=== PATIENT | male | born 1940 | race Caucasian/White ===

== ENCOUNTER 2017-01-05 10:40 | Emergency (ER) | payer MEDICARE, BC ==
[~2017-01-05] VITALS: Ht 152.4 cm; Wt 60.0 kg
[2017-01-05 10:43] VITALS: BP 123/58; PULSE 112; RESP 13; TEMP 98.5; O2SAT 97
[2017-01-05] MEDS ORDERED: CIPR500T2 PO (11:02)
--- NOTE | 2017-01-05 11:53 | PD ---
HPI . Difficulty initiating urine stream Chief Complaint: Complaint Time Seen by Provider: 11:43 Travel History International Travel<30 days: No Contact w/Intl Traveler<30days: No Traveled to known affect area: No History of Present Illness HPI 76-year-old male presents to the emergency department for evaluation of difficulty initiating urine stream. Patient does not have any history of BPH or prostate cancer. Patient is currently being treated for UTI with Cipro 500 twice a day. Patient started this 2 days ago. Patient stated he was alarmed when he felt the urge to urinate and could not urinate, however this is he arrived to the emergency department he urinated a substantial amount. Patient states after starting the Cipro he no longer has dysuria or hematuria. Patient denies any fevers, chills, malaise, chest pain, shortness of breath, nausea, vomiting, diarrhea or lightheadedness. Patient states he feels embarrassed that he came to the emergency department for evaluation since the problem resolved as soon as he presented. Patient denies any other physiological symptoms. 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 PFSH Past Medical History Medical other: Yes (polio) Tetanus Vaccination: > 5 Years Past Surgical History Surgical History: No Previous Surgery Social History Alcohol Use: No Tobacco Use: No Substance Use: No Allergies-Medications (Allergen,Severity, Reaction): Coded Allergies: clarithromycin (Verified Allergy, Unknown, PALPITATIONS, 01/05/17) Reported Meds & Prescriptions Reported Meds & Active Scripts Active Reported Ciprofloxacin (Ciprofloxacin HCl) 500 Mg Tab 500 Mg PO BID Review of Systems Except as stated in HPI: all other systems reviewed are Neg Physical Exam Narrative GENERAL: Well-nourished well-developed 76-year-old male in no acute distress SKIN: Focused skin assessment warm/dry. HEAD: Atraumatic. Normocephalic. EYES: Pupils equal and round. No scleral icterus. No injection or drainage. ENT: No nasal bleeding or discharge. Mucous membranes pink and moist. NECK: Trachea midline. No JVD. CARDIOVASCULAR: Regular rate and rhythm. No murmur appreciated. RESPIRATORY: No accessory muscle use. Clear to auscultation. Breath sounds equal bilaterally. GASTROINTESTINAL: Abdomen soft, non-tender, nondistended. Hepatic and splenic margins not palpable. MUSCULOSKELETAL: Right lower extremity smaller than the left lower extremity related to history of polio. No obvious deformities. No clubbing. No cyanosis. No edema. NEUROLOGICAL: Awake and alert. No obvious cranial nerve deficits. Motor grossly within normal limits. Normal speech. PSYCHIATRIC: Appropriate mood and affect; insight and judgment normal. Data Data Last Documented VS Vital Signs Date Time Temp Pulse Resp B/P (MAP) Pulse Ox O2 Delivery O2 Flow Rate FiO2 01/05/17 10:43 98.5 112 13 123/58 (79) 97 MDM Medical Decision Making Medical Screen Exam Complete: Yes Emergency Medical Condition: Yes Medical Record Reviewed: Yes Differential Diagnosis Differential diagnoses include BPH, nephrolithiasis, UTI, urinary obstruction, anxiety Narrative Course 76-year-old male patient presents emergency department for evaluation of difficulty initiating a stream of urine. Patient is currently being treated for urinary tract infection with Cipro 500 mg twice a day. Patient started his antibiotic 2 days ago. Patient states that he started his antibiotic he has not had any dysuria or hematuria. Patient is afebrile, denies any chest pain, shortness breath, chills, lightheadedness, malaise. Patient states he is embarrassed since he came for a problem that resolved as soon as he arrived. Patient denies any other physiological complaints. Patient will be discharged home with instructions to stay hydrated by drinking enough water and follow up with primary care. Diagnosis Primary Impression: Urinary hesitancy Referrals: Primary Care Physician Patient Instructions: General Instructions, Urinary Tract Infection in Men (ED) Additional Instructions: Please return to emergency department if your symptoms return or worsen. Follow up with your primary care provider. Take medications as prescribed. Med/Other Pt SpecificInfo: No Change to Meds Disposition: 01 DISCHARGE HOME Condition: Stable LuxMichelle barbosa Radha BLACK Jan 05, 2017 11:53
== END 2017-01-05 12:15 | disposition home or self-care (01) ==
LOC: NEPC 10:40
DX: R39.11 Hesitancy of micturition (principal); Z86.12 Personal history of poliomyelitis; Z88.8 Allergy status to other drugs, medicaments and biological substances
CPT/HCPCS: 99281

== ENCOUNTER → 2017-02-09 | Outpatient (CLI) | payer MEDICARE, BC ==
[~2017-02-09] MED LIST: CENTCHW4 CHEW; CIPR250T52 PO; CIPR500T2 PO; MELO15TA20 PO
[2017-02-09 12:55] LABS: AUTOMATED NEUTROPHIL # 8.5 TH/MM3 (1.8-7.7); BASOPHIL # 0.1 TH/MM3 (0-0.2); BASOPHIL % 0.7 % (0.0-2.0); EOSINOPHIL # 0.2 TH/MM3 (0-0.4); EOSINOPHIL % 1.7 % (0.0-4.0); HEMATOCRIT 45.1 % (39.0-51.0); HEMO FLAGS DIFF FINAL; LYMPH % 21.6 % (9.0-44.0); LYMPHOCYTE # 2.6 TH/MM3 (1.0-4.8); MEAN CELL VOLUME 90.9 FL (80.0-100.0); MEAN CORPUSCULAR HEMOGLOBIN 29.9 PG (27.0-34.0); MEAN CORPUSCULAR HGB CONC 32.9 % (32.0-36.0); MONO % 5.7 % (0.0-8.0); NEUT % 70.3 % (16.0-70.0); PLATELET COUNT 255 TH/MM3 (150-450); RED BLOOD COUNT 4.96 MIL/MM3 (4.50-5.90); WHITE BLOOD COUNT 12.2 TH/MM3 (4.0-11.0)
[2017-02-09 13:11] LABS: APTT (PATIENT) 29.7 SEC (24.3-30.1); PROTHROMBIN TIME - PATIENT 10.7 SEC (9.8-11.6)
[2017-02-09 13:27] LABS: ALT (GPT) 22 U/L (12-78); ANION GAP 14 MEQ/L (5-15); AST (GOT) 18 U/L (15-37); BICARBONATE 19.7 MEQ/L (21.0-32.0); BLOOD UREA NITROGEN 31 MG/DL (7-18); CHLORIDE 103 MEQ/L (98-107); GLOMERULAR FILTRATION RATE 36 ML/MIN (>89); GLUCOSE,FASTING 68 MG/DL (74-99); POTASSIUM 4.7 MEQ/L (3.5-5.1); SODIUM (NA) 137 MEQ/L (136-145)
[2017-02-09 13:29] LABS: ALKALINE PHOSPHATASE 79 U/L (45-117)
--- NOTE | 2017-02-09 13:40 | RADRPT ---
EXAM DATE/TIME: 02/09/2017 13:07 [facility] COMPARISON: No previous studies available for comparison. INDICATIONS : Evaluate for pneumonia, pneumothorax, or communicable disease. Colon resection surgery. MEDICAL HISTORY : None. SURGICAL HISTORY : None. ENCOUNTER: Initial ACUITY: 1 day PAIN SCORE: 0/10 LOCATION: Bilateral chest FINDINGS: PA and lateral views of the chest demonstrate the lungs to be symmetrically aerated without evidence of mass, infiltrate or effusion. The cardiomediastinal contours are unremarkable. Osseous structure s are intact. CONCLUSION: No acute disease. Tal Jin MD FACR on February 09, 2017 at 13:37 Board Certified Radiologist. This report was verified electronically.
[2017-02-09 13:49] LABS: BACTERIA, URINE OCC /hpf; BLOOD, URINE NEG (NEG); COMMENT (UR) CULTURE INDICATED; CULTURE IF INDICATED CULTURE INDICATED; GLUCOSE,URINE NEG (NEG); HYALINE CAST, URINE 1 /lpf (RARE); KETONE, URINE 40 mg/dL (NEG); MUCUS URINE FEW /lpf (OCC); NITRITE,URINE NEG (NEG); URINE COLOR YELLOW (YELLW/STRAW)
--- NOTE | 2017-02-12 11:35 | EKG ---
Date Performed: 02/09/2017 Time Performed: 12:30:00 PTAGE: 76 years EKG: SINUS TACHYCARDIA POSSIBLE INFERIOR MYOCARDIAL INFARCTION, PROBABLY OLD ABNORMAL ECG NO PREVIOUS TRACING DOCTOR: Omid Mora Interpretating Date/Time 02/12/2017 11:34:14
== END ==
LOC: CPRE 11:48
PROVIDERS: ATTEND Colon & Rectal Surgery
DX: Z01.810 Encounter for preprocedural cardiovascular examination (principal); Z01.811 Encounter for preprocedural respiratory examination; Z01.812 Encounter for preprocedural laboratory examination; Z79.01 Long term (current) use of anticoagulants; K57.30 Diverticulosis of large intestine without perforation or abscess without bleeding; N32.1 Vesicointestinal fistula; R82.99 Other abnormal findings in urine; R94.31 Abnormal electrocardiogram [ECG] [EKG]
CPT/HCPCS: 36415; 71020; 80053; 81001; 85025; 85610; 85730; 87086; 93005

== ENCOUNTER 2017-02-15 11:30 | Inpatient (IN) | payer MEDICARE, BC ==
[~2017-02-15] VITALS: Ht 152.4 cm; Wt 60.8 kg
[~2017-02-15 11:30] MED LIST changes: -CIPR500T2 PO
[2017-02-15] MEDS ORDERED: ROCURONIUM INJ 50 MG/5 ML SYRINGE IV PUSH ONE (12:00)
[2017-02-15] MEDS ORDERED: ALVIMOPAN 12 MG CAPSULE - On Call PO SCH (12:00)
[2017-02-15] MEDS ORDERED: ceFAZolin 1,000 MG/NS 100 ML IV SCH ×2 (12:00)
[2017-02-15] MEDS ORDERED: PHENYLEPH/NS 1000 MCG/10 ML SYR IV ONE (12:00)
[2017-02-15] MEDS ORDERED: SODIUM CHLORID 0.9% 500 ML IV PRN (12:00)
[2017-02-15] MEDS ORDERED: METOPROLOL TARTRATE 25 MG TAB PO PRN (12:00)
[2017-02-15] MEDS ORDERED: LACTATED RINGER'S 1000 ML IV PRN (12:00)
[2017-02-15] MEDS ORDERED: PROPOFOL 200 MG/20 ML AMP IV ONE (12:00)
[2017-02-15] MEDS ORDERED: DEXAMETHASONE SOD PHOS 4 MG/ML VIAL IV ONE (12:00)
[2017-02-15] MEDS ORDERED: CHLORHEXIDINE GLUCONATE 2 % 1 PACK (2 CLOTHS) TOPICAL PRN (12:00)
[2017-02-15] MEDS ORDERED: LIDOCAINE HCL 1% PF 5 ML AMPULE OTHER ONE (12:00)
[2017-02-15] MEDS ORDERED: ONDANSETRON HCL 4 MG/2 ML VIAL IV PUSH ONE (12:00)
[2017-02-15] MEDS ORDERED: POVIDONE IODINE 5% (ANTISEPSIS KIT) 4 APPLICATIONS EACH NARE PRN (12:00)
[2017-02-15] MEDS ORDERED: METRONIDAZOLE 500 MG/100 ML ISONTONIC SOLN IV SCH (12:00)
[2017-02-15] MEDS ORDERED: LACTATED RINGER'S 1000 ML INJ 1,000 ML IV ONE (12:00)
[2017-02-15] MEDS ORDERED: NORMOSOL R INJ 2,000 ML IV ONE (12:00)
[2017-02-15] MEDS ORDERED: ESMOLOL HCL 100 MG/10 ML VIAL IV ONE (12:00)
[2017-02-15] MEDS ORDERED: INSULIN HUMAN REGULAR 1,000 UNITS/10 ML VIAL SQ PRN (12:00)
[2017-02-15] MEDS ORDERED: HYDROmorphone HCL PF 2 MG/ML VIAL ONE (12:29)
[2017-02-15] MEDS ORDERED: ACETAMINOPHEN 1000 MG/100 ML 100 ML IV ONE (12:29)
[2017-02-15] MEDS ORDERED: DEXT 5%-NACL 0.9% 1000 ML INJ 1,000 ML IV SCH (12:30)
[2017-02-15] MEDS ORDERED: SUGAMMADEX SODIUM 200 MG/2 ML VIAL IV PUSH ONE ×2 (15:02)
[2017-02-15] MEDS ORDERED: MORPHINE SULFATE 30 MG/30 ML PCA IV SCH (15:45)
[2017-02-15] MEDS ORDERED: NALOXONE HCL 0.4 MG/ML AMP IV PUSH PRN (15:45)
[2017-02-15] MEDS ORDERED: SODIUM CHLORIDE 0.9% FLUSH 10 ML FLUSH IV FLUSH PRN (15:45)
[2017-02-15] MEDS ORDERED: POTASSIUM CHLOR 40 MEQ PREMIX 100 ML IV PRN (15:45)
[2017-02-15] MEDS ORDERED: ACETAMINOPHEN/HYDROcodone 325 MG/5 MG TAB PO PRN ×2 (15:45)
[2017-02-15] MEDS ORDERED: ZOLPIDEM TARTRATE 5 MG TAB PO PRN (15:45)
[2017-02-15] MEDS ORDERED: ONDANSETRON HCL 4 MG/2 ML VIAL IV PUSH PRN (15:45)
[2017-02-15] MEDS ORDERED: Post-op Orders (for Pharmacy) MISC XX ONE (15:45)
[2017-02-15] MEDS ORDERED: ENALAPRILAT 1.25 MG/ML VIAL IV PUSH PRN (15:45)
[2017-02-15] MEDS ORDERED: BENZOCAINE 6 MG/MENTHOL 10 MG LOZENGE BUCCAL PRN (15:45)
[2017-02-15] MEDS ORDERED: POTASSIUM CHLOR 20 MEQ PREMIX 100 ML IV PRN (15:45)
[2017-02-15] MEDS ORDERED: DO NOT ADM ANY ANTICOAGULANT DRUGS PRN (16:15)
[2017-02-15] MEDS ORDERED: *morphine SULFATE 8 MG/ML PERIprocedure ONLY ONE ×3 (16:20→17:25)
[2017-02-15] MEDS ORDERED: MORPHINE SULFATE 30 MG/30 ML PCA ONE (16:41)
--- NOTE | 2017-02-15 16:58 | PD.OP ---
Operative Report Date of Surgery: Feb 15, 2017 Preoperative Diagnosis: Diverticulitis with abscess Postoperative Diagnosis: Same Procedure: Cystoscopy with bilateral ureteral catheter placement Anesthesia: ROMANA Surgeon: Eduardo Lmyan Rail Car Unloader(s): None Resident Surgeon: None Operation and Findings: 75 year-old male with history of diverticulitis and diverticular abscess. Patient to undergo colon resection with evacuation of abscess by Dr. Bryson and Dr. Cai. Request for made for bilateral ureteral catheter placement. Patient was brought to the operating room and placed in dorsal lithotomy position, he was prepped and draped in usual sterile fashion, received preprocedure antibiotics, and general endotracheal tube anesthesia was administered. 22 German cystoscope was inserted the bladder and coapting prostatic lobes were identified. There is also a median lobe identified. The right ureteral orifice was identified for Scooter a catheter was inserted into the right ureteral orifice without difficulty. This was repeated on the left side with a 5 German open catheter without difficulty. The [place] was placed and the catheters were secured. The patient tolerated the procedure well. Eduardo Lyman DO Feb 15, 2017 16:58
[2017-02-15] MEDS: METOCLOPRAMIDE HCL 10 MG/2 ML VIAL IVS SCH ×2 (17:21→23:22)
[2017-02-15 17:22] LABS: BICARBONATE 14.9 MEQ/L (21.0-32.0); POTASSIUM 4.4 MEQ/L (3.5-5.1)
[2017-02-15] MEDS: D5-LR + KCL 20 MEQ INJ 1,000 ML IV SCH ×2 (17:24→22:58)
[2017-02-15 18:26] LABS: BASOPHIL % 0.2 % (0.0-2.0); HEMATOCRIT 37.5 % (39.0-51.0); HEMO FLAGS DIFF FINAL; LYMPH % 7.4 % (9.0-44.0); MEAN CELL VOLUME 90.6 FL (80.0-100.0); MEAN CORPUSCULAR HEMOGLOBIN 30.5 PG (27.0-34.0); MEAN CORPUSCULAR HGB CONC 33.7 % (32.0-36.0); MONO % 6.1 % (0.0-8.0); NEUT % 86.3 % (16.0-70.0); PLATELET COUNT 165 TH/MM3 (150-450); RED BLOOD COUNT 4.14 MIL/MM3 (4.50-5.90); RED CELL DISTRIBUTION WIDTH 13.6 % (11.6-17.2)
[2017-02-15] MEDS ORDERED: *HYDROmorphone PF 1 MG VIAL PERIprocedural Use ONLY ONE (18:52)
[2017-02-15 19:00] VITALS: BP 118/59; PULSE 108; RESP 14; TEMP 97.6; O2SAT 98
[2017-02-15 21:00] VITALS: PULSE 114
[2017-02-15] MEDS: metroNIDAZOLE 500 MG INJ 100 ML IV SCH (21:32)
[2017-02-15] MEDS: ceFAZolin 2 GM PREMIX 50 ML IV SCH (21:32)
[2017-02-15] MEDS: FUROSEMIDE 20 MG/2 ML VIAL IV PUSH SCH (21:33)
[2017-02-15] MEDS: SODIUM CHLORIDE 0.9% FLUSH 10 ML FLUSH IV FLUSH SCH (21:33)
[2017-02-15] MEDS: PCA - TOTAL MG MORPHINE DELIVERED PER SHIFT SCH (21:34)
[2017-02-15 22:00] VITALS: PULSE 112; RESP 14
[2017-02-15 23:00] VITALS: BP 103/63; PULSE 115; PULSE 116; RESP 12; TEMP 97.5; O2SAT 98
[2017-02-16] VITALS (14 sets, daily range): BP systolic 91–146; BP diastolic 52–77; PULSE 70–120; RESP 14–18; TEMP 95.5–98; O2SAT 96–98
[2017-02-16] MEDS: D5-LR + KCL 20 MEQ INJ 1,000 ML IV SCH ×2 (02:14→09:17)
[2017-02-16 04:35] LABS: AUTOMATED NEUTROPHIL # 11.6 TH/MM3 (1.8-7.7); BASOPHIL % 0.1 % (0.0-2.0); HEMATOCRIT 37.1 % (39.0-51.0); HEMO FLAGS DIFF FINAL; LYMPH % 4.9 % (9.0-44.0); LYMPHOCYTE # 0.7 TH/MM3 (1.0-4.8); MEAN CELL VOLUME 89.4 FL (80.0-100.0); MEAN CORPUSCULAR HEMOGLOBIN 30.1 PG (27.0-34.0); MEAN CORPUSCULAR HGB CONC 33.7 % (32.0-36.0); MONO % 9.8 % (0.0-8.0); NEUT % 85.2 % (16.0-70.0); PLATELET COUNT 204 TH/MM3 (150-450); RED BLOOD COUNT 4.15 MIL/MM3 (4.50-5.90); RED CELL DISTRIBUTION WIDTH 13.7 % (11.6-17.2); WHITE BLOOD COUNT 13.6 TH/MM3 (4.0-11.0)
[2017-02-16] MEDS: ceFAZolin 2 GM PREMIX 50 ML IV SCH ×2 (04:57→13:59)
[2017-02-16 05:08] LABS: BICARBONATE 22.7 MEQ/L (21.0-32.0); POTASSIUM 4.7 MEQ/L (3.5-5.1)
[2017-02-16] MEDS: PCA - TOTAL MG MORPHINE DELIVERED PER SHIFT SCH ×3 (06:00→20:40)
[2017-02-16] MEDS: metroNIDAZOLE 500 MG INJ 100 ML IV SCH ×2 (06:12→14:00)
[2017-02-16] MEDS: METOCLOPRAMIDE HCL 10 MG/2 ML VIAL IVS SCH ×4 (06:12→22:47)
[2017-02-16] MEDS: MELOXICAM 15 MG TAB PO SCH (08:16)
[2017-02-16] MEDS: PANTOPRAZOLE SODIUM 40 MG VIAL IVP SCH (08:16)
[2017-02-16] MEDS: ALVIMOPAN 12 MG CAPSULE - Post-op dosing PO SCH ×2 (08:16→20:40)
[2017-02-16] MEDS: SODIUM CHLORIDE 0.9% FLUSH 10 ML FLUSH IV FLUSH SCH ×2 (08:19→20:40)
[2017-02-16] MEDS: FUROSEMIDE 20 MG/2 ML VIAL IV PUSH SCH ×2 (08:19→20:40)
--- NOTE | 2017-02-16 08:52 | MP ---
cc: CONCETTA NEELY MD, MARTIN K. MD TOLLAND,NIKHIL Woodruff M.D. DATE OF SURGERY: 02/15/2017 PREOPERATIVE DIAGNOSIS Diverticulitis with colovesical fistula. POSTOPERATIVE DIAGNOSIS Diverticulitis with colovesical fistula. PROCEDURE Sigmoid colectomy, low anterior resection. ANESTHESIA General endotracheal. SURGEON Dr. Weinberg. DIRECTOR EXPORT SURGEON Dr. Ann. ESTIMATED BLOOD LOSS 50 cc. OPERATING TIME One hour and 25 minutes. OPERATIVE FINDINGS This patient had a longstanding, 1-1/2 years, colovesical fistula. It has worsened recently and for this reason he wished repair. A sigmoid resection was recommended. Exploration of the abdominal cavity revealed that the liver was palpably normal as was the gallbladder, the remainder of the colon and the small bowel. There was a segment of diverticulitis with a colovesical fistula to the dome of the bladder. The hole was probably a centimeter in diameter and the dome of the bladder was closed. A sigmoid resection was done with mobilization of the splenic flexure and a colorectal anastomosis was done in the upper third of the rectum. OPERATIVE TECHNIQUE The patient was placed on the table in supine position. After adequate general endotracheal anesthesia, the legs were placed in a perineal lithotomy position. The abdomen and perineum were prepped and draped in the usual manner. A transverse infraumbilical skin incision was made and carried down through subcutaneous tissue and rectus muscles, and the peritoneal cavity is entered with the above-mentioned findings. Dr. Teofilo Nicholson placed bilateral ureteral catheters for facilitation of identification of the ureters. The sigmoid colon was densely stuck to the dome of the bladder and this was dissected free and the fistula was easily seen. The fistula in the dome of the bladder was very visible with mucosa and therefore the mucosa was closed with interrupted 3-0 Vicryl suture and then seromuscular layer of the bladder was closed with interrupted 3-0 Vicryl sutures. The opening in the sigmoid colon was also approximated with 3-0 Vicryl sutures so that stool did not leak. Next, our attention was turned to the sigmoid colon and the descending colon and it was mobilized along its peritoneal reflection. The splenic flexure was mobilized and the omentum was mobilized from the transverse colon entering the lesser sac. The superior hemorrhoidal vessels were doubly clamped, cut and doubly ligated with 0 Vicryl ligatures and the inferior mesenteric vein was also clamped, cut and ligated. The retrorectal space was entered with electrocautery and the lateral pelvic peritoneum was incised bilaterally, and the rectal dissection was taken down to the pelvic floor with electrocautery. The anterior peritoneum over the cul-de-sac was incised but the cul-de-sac was not developed. The rectum below the sigmoid colon section where there was diverticulosis was cleared of its mesorectum with electrocautery and then the rectum was divided after placing a pursestring stapling device. Next, our attention was turned to the sigmoid portion of the colon, and there was adequate length with the full mobilization of the splenic flexure as mentioned. The descending branch of the left colic vessel was not divided. Marginal vessels were left intact and the upper sigmoid colon was cleared of its mesentery and then the pursestring stapling device was placed and the anvil of the 29 EEA was placed in the proximal bowel and the pursestring was tied. Dr. Ann went below and placed the EEA instrument transanally and the distal pursestring was tied. The instrument was then connected, closed and fired, creating a circular anastomosis. Dr. Ann then did proctosigmoidoscopy examination, insufflating air into the rectum and sigmoid colon with saline solution in the pelvis. No air leaks were identified. The pelvis was irrigated with two liters of saline solution and aspirated dry. A flat 10 Reji drain was placed posterior to the retrorectal dissection to the pelvic floor and brought out through a separate stab wound in the right lower quadrant. The previously mobilized omentum was brought down the left colic gutter and placed between the bladder and the colorectal anastomosis. The small bowel was replaced in the abdominal cavity in an bad work gatherer manner and the abdominal cavity was then closed in layers using a double-stranded #1 PDS for the posterior rectus sheath. The muscle layer was irrigated with saline solution and then the anterior rectus sheath was closed with double-stranded #1 PDS as well. The subcutaneous tissue was irrigated thoroughly with saline solution and aspirated dry, and the skin was closed with running 3-0 Vicryl subcuticular suture. Sponge, needle and instrument counts were reported as correct. The estimated blood loss was 50 cc. Operating time was 125 minutes. The patient tolerated the procedure well and left the operating room in good condition. MD BECCA Stanley /3:37 PM /8:36 AM
[2017-02-16] MEDS ORDERED: GLUCAGON 1 MG/ML VIAL OTHER PRN (15:00)
[2017-02-16] MEDS ORDERED: DEXTROSE 50% IN WATER 50 ML VIAL(D50) IV PUSH PRN (15:00)
[2017-02-16] MEDS: POTASSIUM CHLORIDE INJ 20 MEQ in LACTATED RINGER'S 1000 ML INJ 1,000 ML IV SCH (15:41)
[2017-02-16] MEDS: LOW DOSE INSULIN NOVOLOG SUPPLEMENTAL SCALE SQ SCH ×2 (17:00→21:00)
--- NOTE | 2017-02-16 18:13 | HHI.PR ---
Subjective Remarks Denies pain. No N or V. No BMs. Tolerating CLD Objective Vital Signs Date Time Temp Pulse Resp B/P (MAP) Pulse Ox O2 Delivery O2 Flow Rate FiO2 02/16/17 16:00 95.5 106 16 91/54 (66) 96 02/16/17 13:58 16 02/16/17 11:20 97.7 95 16 99/55 (70) 97 02/16/17 11:00 88 02/16/17 08:04 98.0 93 16 97/52 (67) 97 02/16/17 07:00 101 02/16/17 06:00 14 02/16/17 06:00 109 02/16/17 06:00 14 02/16/17 05:00 107 02/16/17 04:00 106 02/16/17 03:00 104 02/16/17 03:00 97.8 120 14 146/77 (100) 98 02/16/17 02:00 106 02/16/17 01:00 96 02/16/17 00:00 104 02/15/17 23:00 97.5 115 12 103/63 (76) 98 02/15/17 23:00 116 02/15/17 22:00 14 02/15/17 22:00 112 02/15/17 21:34 14 02/15/17 21:00 114 02/15/17 19:00 97.6 108 14 118/59 (78) 98 02/15/17 19:00 104 16 103/55 (71) 98 Room Air 02/15/17 18:30 108 16 123/63 (83) 99 Room Air I/O 02/15/17 02/15/17 02/15/17 02/16/17 02/16/17 02/16/17 07:00 15:00 23:00 07:00 15:00 23:00 Intake Total 3264.3 ml 2591 ml 850 ml 200 ml Output Total 750 ml 2600 ml 1420 ml Balance 2514.3 ml -9 ml -570 ml 200 ml Intake Oral 400 ml IV Total 264.3 ml 2591 ml 450 ml 200 ml Other 3000 ml Output Urine Total 400 ml 2525 ml 1400 ml Drainage Total 150 ml 75 ml 20 ml Estimated Blood Loss 200 ml Result Diagram: 02/16/17 0423 02/16/17 0423 Objective Remarks VS-S Abd: flat,soft. I&Os and Labs OK Assessment and Plan Assessment and Plan Stable. POD#1 CLD. Decrease IVs Jonathon Weinberg MD Feb 16, 2017 18:13
[2017-02-16] MEDS ORDERED: ALVIMOPAN 12 MG CAPSULE PO SCH (21:00)
[2017-02-17 00:19] VITALS: BP 105/55; PULSE 72; RESP 18; TEMP 98.1; O2SAT 98
[2017-02-17] MEDS: POTASSIUM CHLORIDE INJ 20 MEQ in LACTATED RINGER'S 1000 ML INJ 1,000 ML IV SCH ×2 (01:44→11:55)
[2017-02-17] MEDS: PCA - TOTAL MG MORPHINE DELIVERED PER SHIFT SCH (04:14)
[2017-02-17] MEDS: METOCLOPRAMIDE HCL 10 MG/2 ML VIAL IVS SCH ×4 (04:14→22:46)
[2017-02-17 06:02] LABS: BICARBONATE 20.7 MEQ/L (21.0-32.0); POTASSIUM 4.2 MEQ/L (3.5-5.1)
[2017-02-17 06:19] LABS: AUTOMATED NEUTROPHIL # 9.5 TH/MM3 (1.8-7.7); BASOPHIL # 0.1 TH/MM3 (0-0.2); BASOPHIL % 0.4 % (0.0-2.0); EOSINOPHIL # 0.1 TH/MM3 (0-0.4); EOSINOPHIL % 0.8 % (0.0-4.0); HEMATOCRIT 35.6 % (39.0-51.0); HEMO FLAGS DIFF FINAL; LYMPH % 16.8 % (9.0-44.0); LYMPHOCYTE # 2.2 TH/MM3 (1.0-4.8); MEAN CELL VOLUME 88.6 FL (80.0-100.0); MEAN CORPUSCULAR HEMOGLOBIN 30.7 PG (27.0-34.0); MEAN CORPUSCULAR HGB CONC 34.6 % (32.0-36.0); MONO % 10.8 % (0.0-8.0); NEUT % 71.2 % (16.0-70.0); PLATELET COUNT 154 TH/MM3 (150-450); RED BLOOD COUNT 4.02 MIL/MM3 (4.50-5.90); RED CELL DISTRIBUTION WIDTH 13.7 % (11.6-17.2); WHITE BLOOD COUNT 13.3 TH/MM3 (4.0-11.0)
[2017-02-17 08:00] VITALS: BP 114/53; PULSE 111; RESP 16; TEMP 95.1; O2SAT 98
--- NOTE | 2017-02-17 08:46 | HHI.PR ---
Subjective Remarks Denies pain. No N or V. No BMs. Tolerating FLD Objective Vital Signs Date Time Temp Pulse Resp B/P (MAP) Pulse Ox O2 Delivery O2 Flow Rate FiO2 02/17/17 08:00 95.1 111 16 114/53 (73) 98 02/17/17 04:14 18 02/17/17 00:19 98.1 72 18 105/55 (72) 98 02/16/17 22:49 18 02/16/17 20:40 18 02/16/17 20:30 97.0 70 18 99/58 (72) 97 02/16/17 16:00 95.5 106 16 91/54 (66) 96 02/16/17 13:58 16 02/16/17 11:20 97.7 95 16 99/55 (70) 97 02/16/17 11:00 88 I/O 02/16/17 02/16/17 02/16/17 02/17/17 02/17/17 02/17/17 07:00 15:00 23:00 07:00 15:00 23:00 Intake Total 2591 ml 850 ml 200 ml 1730 ml Output Total 2600 ml 1420 ml 25 ml 2010 ml Balance -9 ml -570 ml 175 ml -280 ml Intake Oral 400 ml 780 ml IV Total 2591 ml 450 ml 200 ml 950 ml Output Urine Total 2525 ml 1400 ml 2000 ml Drainage Total 75 ml 20 ml 25 ml 10 ml Result Diagram: 02/17/178 02/17/17447 Objective Remarks VS-S Abd: flat,soft.Wound clean I&Os and Labs: OK Assessment and Plan Assessment and Plan Stable. POD#2 FLD. Decrease IVs. Jonathon Weinberg MD Feb 17, 2017 08:46
[2017-02-17] MEDS ORDERED: PSEUDOEPHEDRINE HCL 30 MG TAB PO PRN (09:00)
[2017-02-17] MEDS: LOW DOSE INSULIN NOVOLOG SUPPLEMENTAL SCALE SQ SCH ×4 (09:38→20:42)
[2017-02-17] MEDS: PANTOPRAZOLE SODIUM 40 MG VIAL IVP SCH (09:40)
[2017-02-17] MEDS: FUROSEMIDE 20 MG/2 ML VIAL IV PUSH SCH ×2 (09:40→20:36)
[2017-02-17] MEDS: ALVIMOPAN 12 MG CAPSULE - Post-op dosing PO SCH ×2 (09:40→20:35)
[2017-02-17] MEDS: MELOXICAM 15 MG TAB PO SCH (09:40)
[2017-02-17] MEDS: SODIUM CHLORIDE 0.9% FLUSH 10 ML FLUSH IV FLUSH SCH ×2 (09:41→20:35)
[2017-02-17 12:00] VITALS: BP 99/55; PULSE 112; RESP 18; TEMP 97.7; O2SAT 98
[2017-02-17 16:00] VITALS: BP 107/59; PULSE 122; RESP 16; TEMP 97.6; O2SAT 97
[2017-02-17 20:00] VITALS: BP 100/55; PULSE 127; RESP 22; TEMP 96.4; O2SAT 96
[2017-02-18] VITALS: BP 134/61; PULSE 90; RESP 20; TEMP 98.2; O2SAT 97
[2017-02-18] MEDS: POTASSIUM CHLORIDE INJ 20 MEQ in LACTATED RINGER'S 1000 ML INJ 1,000 ML IV SCH (05:22)
[2017-02-18] MEDS: METOCLOPRAMIDE HCL 10 MG/2 ML VIAL IVS SCH ×2 (05:22→12:15)
[2017-02-18 05:37] LABS: BICARBONATE 27.2 MEQ/L (21.0-32.0); POTASSIUM 3.8 MEQ/L (3.5-5.1)
[2017-02-18] MEDS: LOW DOSE INSULIN NOVOLOG SUPPLEMENTAL SCALE SQ SCH ×2 (05:59→12:15)
[2017-02-18 08:00] VITALS: BP 117/66; PULSE 120; RESP 17; TEMP 96.2; O2SAT 97
[2017-02-18] MEDS: FUROSEMIDE 20 MG/2 ML VIAL IV PUSH SCH (09:48)
[2017-02-18] MEDS: ALVIMOPAN 12 MG CAPSULE - Post-op dosing PO SCH (09:48)
[2017-02-18] MEDS: PANTOPRAZOLE SODIUM 40 MG VIAL IVP SCH (09:48)
[2017-02-18] MEDS: MELOXICAM 15 MG TAB PO SCH (09:48)
[2017-02-18] MEDS: SODIUM CHLORIDE 0.9% FLUSH 10 ML FLUSH IV FLUSH SCH (09:49)
[2017-02-18 12:00] VITALS: BP 121/62; PULSE 129; RESP 17; TEMP 96.5; O2SAT 98
--- NOTE | 2017-02-18 12:49 | HHI.DCPOC ---
Discharge Care Plan Diagnosis: (1) Diverticulitis large intestine (2) Colovesical fistula (3) Sigmoid colon resection Your Health Problems Are: Difficulty with ADL Incision/Drains Appetite Changes Irregular Bowel Function Exercise Tolerance Goals to Promote Your Health * To prevent worsening of your condition and complications * To maintain your health at the optimal level Directions to Meet Your Goals Take your medications as prescribed Follow your dietary instruction Follow activity as directed Keep your appointments as scheduled Take your immunizations and boosters as scheduled If your symptoms worsen call your PCP, if no PCP go to Urgent Care Center or Emergency Room Smoking is Dangerous to Your Health. Avoid second hand smoke Call the 24-hour hour crisis hotline for domestic abuse at Joanthon Weinberg MD Feb 18, 2017 12:49
== END 2017-02-18 14:23 | disposition home or self-care (01) | DRG 654 ==
LOC: HSDI 11:30 → HCPC 19:30 → N07B 02-16 13:04
PROVIDERS: ADMIT Colon & Rectal Surgery; ATTEND Colon & Rectal Surgery
PROC: 0DBP0ZZ Excision of Rectum, Open Approach (ICD-10-PCS; 2017-02-15)
PROC: 0DJD8ZZ Inspection of Lower Intestinal Tract, Via Natural or Artificial Opening Endoscopic (ICD-10-PCS; 2017-02-15)
PROC: 0T9780Z Drainage of Left Ureter with Drainage Device, Via Natural or Artificial Opening Endoscopic (ICD-10-PCS; 2017-02-15)
PROC: 0T9680Z Drainage of Right Ureter with Drainage Device, Via Natural or Artificial Opening Endoscopic (ICD-10-PCS; 2017-02-15)
PROC: 0TQB0ZZ Repair Bladder, Open Approach (ICD-10-PCS; principal; 2017-02-15 13:26)
PROC: 0DTN0ZZ Resection of Sigmoid Colon, Open Approach (ICD-10-PCS; 2017-02-15 13:26)
DX: N32.1 Vesicointestinal fistula (principal); K57.20 Diverticulitis of large intestine with perforation and abscess without bleeding; Z88.1 Allergy status to other antibiotic agents
CPT/HCPCS: 80048; 82948; 85025; 86850; 86900; 86901; 87086; 88307; 88309; 94150; C1769; C9113; J0131; J0690; J1100; J1170; J1940; J2270; J2370; J2405; J2765; J3010; J3480; J7120